=== PATIENT | male | born 1960 | race Caucasian/White ===

== ENCOUNTER → 2022-02-06 | Outpatient (CLI) | payer MEDICAID ==
--- NOTE | 2022-02-10 08:38 | Holter Monitor ---
HOLTER MONITOR DATE OF PROCEDURE: 02/06/2022. INDICATION: Irregular heartbeat. PROCEDURE: A 24-hour Holter monitor was obtained for a total of 24 hours. The study quality is adequate. RESULTS: 1. Baseline sinus rhythm with an average heart rate of 90 bpm, ranging from 38- 138 bpm while in sinus rhythm. 2. There were very frequent (15,830), isolated premature supraventricular complexes, 38 supraventricular couplets and 6 runs of paroxysmal atrial tachycardia with a longest duration of 5 beats and a maximum heart rate of 156 bpm. The overall burden of supraventricular ectopy was 15%. 3. There were very frequent (19,411), isolated premature ventricular complexes and 31 ventricular couplets. There was no high-grade ventricular ectopy. The overall burden of ventricular ectopy was 18%. 4. There were no pauses exceeding 2 seconds in duration. 5. No cardiac symptoms were recorded in the patient diary. IMPRESSION: 1. This is a 24-hour Holter monitor report. 2. Baseline sinus rhythm with an average heart rate of 90 bpm, ranging from 38- 138 bpm while in sinus rhythm with frequent supraventricular and ventricular ectopy as outlined above. The overall burden of supraventricular ectopy was 15% and the overall burden of ventricular ectopy was 18%. There was no high-grade ventricular ectopy. 3. No cardiac symptoms were recorded in the patient diary. 4. Given the very large amount of ventricular ectopy, this could put the patient at risk of developing cardiomyopathy if he does not already have cardiomyopathy. Coronary ischemia is also in the differential diagnosis. Clinical correlation is suggested. Certain portions of this document may have been dictated utilizing voice recognition technology. Inherent to this technology, typographical and grammatical errors may exist. As much as I am diligent to identify and correct these mistakes, some errors may remain in the document. MCKENZIE EDUARDO JR, MD February 10, 2022 08:38
== END ==
LOC: CARD 15:00
PROVIDERS: ATTEND Internal Medicine
DX: I49.9 Cardiac arrhythmia, unspecified (principal)
CPT/HCPCS: 93225; 93226

== ENCOUNTER → 2022-03-03 | Outpatient (CLI) | payer MEDICAID | LOC: CARD 12:00 | PROVIDERS: ATTEND Internal Medicine Cardiovascular Disease | DX: I35.8 Other nonrheumatic aortic valve disorders (principal); I49.3 Ventricular premature depolarization; I51.7 Cardiomegaly | CPT/HCPCS: 93306 ==

== ENCOUNTER → 2022-03-09 | Outpatient (CLI) | payer MEDICAID ==
[~2022-03-09] VITALS: Ht 175 cm; Wt 131.0 kg
[~2022-03-09] MED LIST: CATHETER FLUSH 10 ML SYR IVP PRN; REGADENOSON 0.4 MG/5 ML SYR (LEXISCAN) IV ONE
[2022-03-09 08:50] VITALS: BP 150/103
--- NOTE | 2022-03-09 13:06 | NUCLEAR STRESS TEST ---
REGADENOSON NUCLEAR STRESS Date of procedure: 03/09/2022. Primary care provider: Juan Tipton MD Admitting physician: Juan Butler Jr., MD. INDICATION: Premature ventricular complexes. BASELINE ELECTROCARDIOGRAM: Sinus rhythm with occasional premature ventricular complexes and nonspecific intraventricular conduction delay. STRESS TEST PROCEDURE: The patient was administered 0.4 mg of intravenous Regadenoson. The resting heart rate was 77 bpm and the peak heart rate was 117 bpm. The resting blood pressure was 150/103 mmHg and the minimum blood pressure was 135/89 mmHg. This represents a normal heart rate and a [] blood pressure response to Regadenoson. The test was stopped due to the protocol. There was no chest discomfort during the test. There were isolated premature ventricular complexes throughout the test. There were no significant stress induced electrocardiogram changes. NUCLEAR PROCEDURE: The patient was administered 10.5 mCi of intravenous technetium 99m Tetrofosmin at rest for the rest images. The patient was subsequently administered 31.2 mCi of intravenous technetium 99m Tetrofosmin at peak stress for the stress images. Following an appropriate wait after each injection, imaging was obtained. The images were subsequently processed and reformatted in the usual views. Gated imaging was obtained. The image quality was adequate with a mild degree of gastrointestinal attenuation artifact. CT attenuation correction was used as a adjunct to standard imaging. Both the corrected and uncorrected images were reviewed for interpretation. NUCLEAR RESULTS: There was a small, mild intensity, reversible apical defect with a small amount of inducible ischemia with a summed stress score of 4 and a summed difference score of 3. There was normal left ventricular chamber size with an end-diastolic volume of 67 mL and an end-systolic volume of 21 mL. There was no evidence of transient ischemic dilatation. The TID ratio was 1.02. There was normal wall motion in all segments with a calculated ejection fraction of 69%. IMPRESSION: 1. Normal heart rate and blood pressure response to regadenoson. 2. There was no chest discomfort or electrocardiogram changes during the test. 3. There were isolated premature ventricular complexes throughout the test. 4. There was a small, mild intensity, reversible apical defect with a small amount of inducible ischemia with a summed stress score of 4 and a summed difference score of 3. 5. There was normal wall motion in all segments with a calculated ejection fraction of 69%. Certain portions of this document may have been dictated utilizing voice recognition technology. Inherent to this technology, typographical and grammatical errors may exist. As much as I am diligent to identify and correct these mistakes, some errors may remain in the document. JUAN BUTLER JR, MD Mar 09, 2022 13:06
== END ==
LOC: CARD 07:21
PROVIDERS: ATTEND Internal Medicine Cardiovascular Disease
DX: I49.3 Ventricular premature depolarization (principal)
CPT/HCPCS: 78452; 93017; A9502